=== PATIENT | female | born 1985 | race Caucasian/White ===

== ENCOUNTER 2016-12-26 19:17 | Emergency (ER) | payer BC ==
[~2016-12-26] VITALS: Ht 157.5 cm; Wt 69.1 kg
[2016-12-26 20:21] LABS: PATH.CAST-FLAG NOT PRESENT; SPERM-FLAG NOT PRESENT; SRC-FLAG NOT PRESENT; XTAL-FLAG NOT PRESENT; YLC-FLAG NOT PRESENT
[2016-12-26] MEDS ORDERED: HYDROcodone/APAP 5/325 TABLET ONE (20:53)
[2016-12-26 20:56] LABS: ASPARTATE AMINO TRANSFERASE 8 U/L (15-37); BLOOD UREA NITROGEN 13 mg/dL (7-18)
[2016-12-26] MEDS ORDERED: OXYcodone/APAP 5/325MG TABLET PO ONE (21:00)
[2016-12-26 21:03] VITALS: BP 109/69
== END 2016-12-26 22:22 | disposition home or self-care (01) ==
LOC: ED 21:15
DX: R10.32 Left lower quadrant pain (principal); Z88.6 Allergy status to analgesic agent
CPT/HCPCS: 36415; 74176; 76830; 80053; 81003; 83690; 84703; 85025; 87086

== ENCOUNTER 2019-07-23 19:30 | Observation (INO) | payer BC, OTHER ==
[~2019-07-23] VITALS: Ht 152.4 cm; Wt 73.8 kg
[2019-07-23] MEDS ORDERED: HYDROmorphone 1 MG/ML, 1ML VIAL ONE ×3 (20:10→22:42)
--- NOTE | 2019-07-23 20:16 | NUR ---
PT MEDICATED PER MAR. PT AWARE A UA IS NEEDED. PT UNABLE TO PRODUCE SAMPLE AT THIS TIME.
[2019-07-23] MEDS ORDERED: HYDROmorphone 1 MG/ML, 1ML INJ IM ONE (20:30)
--- NOTE | 2019-07-23 20:52 | NUR ---
PT TO US STILL REQUESTING PAIN MEDS.
[2019-07-23] MEDS ORDERED: ONDANSETRON 2MG/ML, 2ML ONE (21:22)
[2019-07-23 21:27] LABS: BASOPHILS # (AUTO) 0.04 x10^3/uL (0-0.1); BASOPHILS % (AUTO) 0 % (0-1); EOSINOPHILS # (AUTO) 0.22 x10^3/uL (0-0.4); EOSINOPHILS % (AUTO) 2 % (1-7); LYMPHOCYTES # (AUTO) 1.35 x10^3/uL (1-3.4); LYMPHOCYTES % (AUTO) 11 % (22-44); MD NO; MEAN CORPUSCULAR HEMOGLOBIN 31.6 pg (27.0-34.8); MEAN CORPUSCULAR HGB CONC 33.2 g/dL (32.4-35.8); MEAN CORPUSCULAR VOLUME 95.2 fL (80-100); MEAN PLATELET VOLUME 7.7 fL (7.4-10.4); MONOCYTES # (AUTO) 0.43 x10^3/uL (0.2-0.8); MONOCYTES % (AUTO) 3 % (2-9); NEUTROPHILS # (AUTO) 10.61 x10^3/uL (1.8-6.8); NEUTROPHILS % (AUTO) 84 % (42-75); PLATELET COUNT 359 x10^3/uL (130-400); RED BLOOD COUNT 4.76 x10^6/uL (3.82-5.3); RED CELL DISTRIBUTION WIDTH 12.8 % (9.6-15.2)
--- NOTE | 2019-07-23 21:28 | NUR ---
IV STARTED AND PT MEDICATED ORDERED.
[2019-07-23] MEDS ORDERED: ONDANSETRON 2MG/ML, 2ML IVPush ONE (21:30)
[2019-07-23] MEDS ORDERED: HYDROmorphone 1 MG/ML, 1ML VIAL IVPush PRN (21:30)
[2019-07-23 21:35] LABS: ANION GAP 6 mmol/L (5-15); CALCIUM 8.8 mg/dL (8.5-10.1); CHLORIDE 109 mmol/L (98-107); CREATININE 0.68 mg/dL (0.55-1.02)
[2019-07-23] MEDS ORDERED: HYDROmorphone 1 MG/ML, 1ML INJ IV ONE (22:30)
--- NOTE | 2019-07-23 22:44 | NUR ---
PT MEDICATED FOR PAIN AGAIN AND AWAITING BEDSIDE US.
[2019-07-23 22:52] LABS: HCG UR SG 1.021 (1.003-1.030); MICROSCOPIC NOT IND
[2019-07-23 22:54] LABS: CULTURE INDICATED? NO
--- NOTE | 2019-07-23 23:06 | NUR ---
REPORT CALLED TO OR
[2019-07-23] MEDS ORDERED: MIDAZOLAM 1 MG/ML, 2ML ONE (23:46)
[2019-07-23] MEDS ORDERED: FENTANYL PF 250 MCG/5ML ONE (23:46)
[2019-07-23] MEDS ORDERED: BUPIVACAINE 0.25% ONE (23:47)
[2019-07-23] MEDS ORDERED: EPINEPHRINE 1 MG/ML, 1ML ONE (23:47)
[2019-07-24] MEDS ORDERED: BUPIVACAINE/PF-EPI 0.25% 1:200K INFIL ONE (00:18)
[2019-07-24] MEDS ORDERED: PROPOFOL 10 MG/ML, 20ML ONE (00:34)
[2019-07-24] MEDS ORDERED: DEXAMETHASONE 4 MG/ML, 1ML ONE (00:34)
[2019-07-24] MEDS ORDERED: ONDANSETRON 2MG/ML, 2ML ONE (00:34)
[2019-07-24] MEDS ORDERED: CEFAZOLIN 1,000 MG ONE (00:34)
[2019-07-24] MEDS ORDERED: NEOSTIGMINE 1 MG/ML, 10ML ONE (00:34)
[2019-07-24] MEDS ORDERED: GLYCOPYRROLATE 0.2MG/1ML, 5ML ONE (00:34)
[2019-07-24] MEDS ORDERED: ROCURONIUM 10MG/ML,5ML ONE (00:34)
[2019-07-24] MEDS ORDERED: SUCCINYLCHOLINE 20 MG/ML, 10ML ONE (00:34)
[2019-07-24] MEDS ORDERED: FENTANYL PF 100 MCG/2ML ONE ×3 (00:35→02:16)
[2019-07-24] MEDS ORDERED: MEPERIDINE/PF 25MG/ML,1ML ONE (01:49)
[2019-07-24] MEDS ORDERED: FENTANYL PF 100 MCG/2ML IV PRN (02:00)
[2019-07-24] MEDS ORDERED: PROMETHAZINE 25 MG/ML, 1ML IV PRN (02:00)
[2019-07-24] MEDS ORDERED: MEPERIDINE/PF 25MG/ML,1ML IVPush PRN (02:00)
[2019-07-24] MEDS ORDERED: OXYcodone 5 MG/5 ML ORAL.SOL UDC PO PRN (02:00)
[2019-07-24] MEDS ORDERED: hydrALAzine 20 MG/ML, 1ML IV PRN (02:00)
[2019-07-24] MEDS ORDERED: MORPHINE SULFATE 4 MG/ML, 1ML IVPush PRN (02:00)
[2019-07-24] MEDS ORDERED: LABETALOL 5MG/ML, 20ML IV PRN (02:00)
[2019-07-24] MEDS ORDERED: ACETAMINOPHEN 325 MG TABLET PO PRN (02:00)
[2019-07-24] MEDS ORDERED: HALOPERIDOL 5 MG/ML IV PRN (02:00)
[2019-07-24] MEDS ORDERED: HYDROmorphone 2 MG/ML, 1ML IVPush PRN (02:00)
[2019-07-24] MEDS ORDERED: OXYcodone 5 MG/5 ML ORAL.SOL UDC ONE (02:11)
[2019-07-24] MEDS ORDERED: ACETAMINOPHEN 650 MG/20.3 ML UDC ONE (02:11)
[2019-07-24 02:45] VITALS: BP 116/78
[2019-07-24] MEDS ORDERED: OXYC-302 PO (03:52)
[2019-07-24] MEDS: OXYcodone/APAP 5/325MG TABLET PO PRN ×2 (06:25→11:07)
[2019-07-24 06:46] VITALS: BP 104/67
== END 2019-07-24 11:30 | disposition home or self-care (01) ==
LOC: ED 22:45 → INTOOBSV 22:46 → EDIP 22:46 → 4NE 07-24 02:48
PROVIDERS: ADMIT Obstetrics & Gynecology; ATTEND Obstetrics & Gynecology
DX: N83.512 Torsion of left ovary and ovarian pedicle (principal); E28.2 Polycystic ovarian syndrome; Z97.5 Presence of (intrauterine) contraceptive device
CPT/HCPCS: 36415; 58661; 76830; 80048; 81003; 81025; 84703; 85025; 88305; 96372; 96374; 96375; 96376; 99284; G0378; J0171; J0330; J0690; J1100; J1170; J2175; J2250; J2405; J2704; J2710; J3010; J3490